=== PATIENT | male | born 2000 | race Two or more races ===

== ENCOUNTER 2025-08-08 00:45 | Emergency (ER) | payer SELFPAY ==
[2025-08-08 00:46] VITALS: BMI 40.6
--- NOTE | 2025-08-08 01:06 | PD.EDDENTL ---
ED Dental RME/HPI General Chief complaint: Dental/Oral/Throat Stated complaint: TOOTH PAIN Time Seen by Provider: 08/08/25 01:03 Source: patient, RN notes reviewed and old records reviewed Arrival date/time: 08/08/25 00:45 Mode of arrival: ambulatory Limitations: no limitations RME / HPI RME / HPI Narrative: 25yom presents to ED for 1-week history of dental pain worsened since last night. Patient states he hasn't been to the dentist in over a year. Reports toothache to left upper molars. No fever, facial swelling, n/v or headache reported. Patient has taken ibuprofen/tylenol with minimal relief. Related Data Previous Rx's ?Medication ?Instructions ?Recorded acetaminophen 500 mg tablet 1,000 mg (2 x 500 mg) PO Q6H PRN 08/08/25 (Tylenol Extra Strength) pain #30 tabs ibuprofen 800 mg tablet 800 mg PO Q8H PRN pain #30 tabs 08/08/25 Allergies Allergy/AdvReac Type Severity Reaction Status Date / Time NKA* Allergy Uncoded 08/08/25 00:48 Review of Systems Review of Systems Systems Reviewed: All systems reviewed, normal except as documented Constitutional Constitutional: Denies chills and Denies fever(s) ENT Ears, Nose, Mouth, and Throat: Reports dental pain and Denies neck pain Cardiovascular Cardiovascular: Denies dyspnea Respiratory Respiratory: Denies dyspnea Gastrointestinal Gastrointestinal: Denies nausea and Denies vomiting Musculoskeletal Musculoskeletal: Denies neck pain Past Medical History Past Medical History GASTROINTESTINAL: Positive Obesity Surgical History OTHER SURGICAL HX: denies pshx Social History SMOKING STATUS: Former smoker SUBSTANCE USE: does not use ALCOHOL: Never ED Exam General Limitations: Present no limitations General appearance: Present alert, in no apparent distress and obese Head Head exam: Present atraumatic and normocephalic Eye Eye exam: Present normal appearance, PERRL and EOMI ENT ENT exam: Present normal oropharynx and other (Generalized dental caries. TTP to left upper molars. No gingival erythema or swelling. No obvious drainable abscess. No facial swelling or trismus) Neck Neck exam: Present normal inspection and full ROM Chest Chest inspection: Present normal inspection and symmetric chest wall rise Respiratory Respiratory exam: Present normal lung sounds bilaterally; Absent respiratory distress Cardiovascular Cardiovascular exam: Present regular rate and normal rhythm Extremities Exam Extremities exam: Present normal inspection and full ROM Neurological Exam Neurological exam: Present alert and oriented X3 Psychiatric Psychiatric exam: Present normal affect and normal mood Skin Skin exam: Present warm, dry, intact and normal color Course Quality Measures none Orders Category Date Time Status HYDROcodone/APAP 10/325 [[place] 10/325] Med 08/08/25 01:06 Discontinued 1 tab PO X1 ONE Ketorolac Inj [Toradol Inj] Med 08/08/25 01:06 Discontinued 30 mg IM X1 ONE Vital Signs Vital signs: Vital Signs Temperature 98.2 F 08/08/25 01:12 Pulse Rate 97 08/08/25 01:12 Respiratory Rate 18 08/08/25 01:12 Blood Pressure 151/90 H 08/08/25 01:12 Pulse Oximetry (%) 97 08/08/25 01:12 Oxygen Delivery Method Room Air 08/08/25 01:12 Dental / Oral MDM Narrative MDM Narrative:: 25yom presents to ED for 1-week history of dental pain worsened since last night. Patient states he hasn't been to the dentist in over a year. Reports toothache to left upper molars. No fever, facial swelling, n/v or headache reported. Patient has taken ibuprofen/tylenol with minimal relief. Will treat for dental pain and possible infection. Recommended close f/u with dentistry. Stable for dc, RTED precautions given. Patient data External records reviewed:: [facility] previous records (12/05/17 PT clinic visit for knee pain) Clinical information provided by:: patient Social determinants that could affect healthcare access:: other (specify) (poor access to healthcare) Patient has the following chronic illnesses:: obesity How is presenting disease/condition affected by chronic disease/condition?: uneffected by Evaluation data The following diagnostics were reviewed and interpreted by me:: other (specify) (none) Lab and/or radiology exams considered but not ordered:: none Interpretation Summary: na Medications / Prescriptions Medications or Prescriptions considered but not ordered:: none Medication administrations:: Medication Administration History Discontinued Medications Hydrocodone Bitart/Acetaminophen (Hydrocodone/Apap 10/325 Tab) 1 tab PO X1 ONE Stop: 08/08/25 01:07 Last Admin: 08/08/25 01:20 Dose: 1 tab Documented By: CLIFFORD Ketorolac Tromethamine (Ketorolac Inj 30 Mg/Ml Vial) 30 mg IM X1 ONE Stop: 08/08/25 01:07 Last Admin: 08/08/25 01:21 Dose: 30 mg Documented By: DT above medications administered in ED Consultations Consultation(s) initiated? (list below): No Diagnosis Dental Differential Diagnosis: gingival abscess, dental caries, toothache, dental abscess and fracture of tooth Most likely diagnosis given after review of the tests above:: dental pain, dental caries Admission Indicated Admission indicated?: not indicated Admission Request Was there a request for admission?: No Disposition Plan Disposition Plan: Discharge Discharge Attestation Discharge Attestation: The patient and all family members were given an opportunity to ask questions and understood the discharge instructions. Discharge instructions specifically effects, indications for sooner follow up or return to the emergency department, and the expected course of current diagnosis. Patient condition: Stable Discharge Plan Plan Patient Disposition: HOME (Self Care) Patient condition on transfer: Stable Prescriptions/Referrals Prescriptions/Med Rec: New ibuprofen 800 mg tablet 800 mg PO Q8H PRN (Reason: pain) Qty: 30 0RF acetaminophen [Tylenol Extra Strength] 500 mg tablet 1,000 mg PO Q6H PRN (Reason: pain) Qty: 30 0RF Problem List Clinical Impression: Toothache, Dental caries Patient/Caregiver Discharge Instructions Education Materials: ED Dental Pain Print Language: Luxembourgish Stand Alone Forms: Bettina Award Info., Patient Portal Info Letter PA/SEASONAL CLERK Supervising Physician WILEY/MARIA DEL ROSARIO Supervising Physician: Taty
[2025-08-08 01:12] VITALS: BP 151/90; PULSE 97; RESP 18; TEMP 36.8; O2SAT 97
[2025-08-08] MEDS: KETOROLAC INJ 30 MG/ML VIAL IM (01:21)
[2025-08-08 01:23] VITALS: BP 145/87; PULSE 95; RESP 14; TEMP 37; O2SAT 99
== END 2025-08-08 01:23 | disposition home or self-care (01) ==
LOC: SERX 01:46
PROVIDERS: Emergency Provider Emergency Medicine
DX: K02.9 Dental caries, unspecified (principal)
CPT/HCPCS: 96372; 99283; J1885; A9270